=== PATIENT | male | born 1955 | race African-American/Black ===

== ENCOUNTER 2024-10-07 21:09 | Emergency (ER) | payer BC ==
[~2024-10-07] VITALS: Ht 188 cm; Wt 100.0 kg
[2024-10-07 21:19] VITALS: O2SAT 100
[2024-10-07] MEDS: ACETAMINOPHEN 325MG TABLET PO ONE (22:12)
[2024-10-07 23:24] VITALS: BP 139/74; PULSE 69; RESP 16; TEMP 36.8; O2SAT 96
== END 2024-10-07 23:26 | disposition home or self-care (01) ==
LOC: ER 21:25
DX: S09.90XA Unspecified injury of head, initial encounter (principal); G89.11 Acute pain due to trauma; Z91.013 Allergy to seafood; Z88.7 Allergy status to serum and vaccine; W01.0XXA Fall on same level from slipping, tripping and stumbling without subsequent striking against object, initial encounter; Y93.01 Activity, walking, marching and hiking; Y92.89 Other specified places as the place of occurrence of the external cause; Y99.8 Other external cause status
CPT/HCPCS: 70486; 99284